=== PATIENT | female | born 1970 | race Caucasian/White ===

== ENCOUNTER 2016-10-21 16:15 | Observation (INO) | payer MEDICARE ==
[~2016-10-21] VITALS: Ht 162.6 cm; Wt 62.6 kg
--- NOTE | 2016-10-22 00:06 | NUR ---
pt refused neb tx's states she does not need them.
== END 2016-10-24 13:40 | disposition home or self-care (01) ==
LOC: ER 16:15 → MED 19:05
PROVIDERS: ADMIT Internal Medicine
DX: J44.1 Chronic obstructive pulmonary disease with (acute) exacerbation (principal); E05.90 Thyrotoxicosis, unspecified without thyrotoxic crisis or storm; K21.9 Gastro-esophageal reflux disease without esophagitis; D72.829 Elevated white blood cell count, unspecified; F17.210 Nicotine dependence, cigarettes, uncomplicated; Z79.899 Other long term (current) drug therapy; Z86.69 Personal history of other diseases of the nervous system and sense organs
CPT/HCPCS: 36415; 87507; 96361; 96365; 96366; 96372; 96375; 96376; G0378; J1650